=== PATIENT | female | born 1960 | race Caucasian/White ===

== ENCOUNTER → 2016-07-24 09:28 | Outpatient (CLI) | payer MEDICAID ==
[~2016-07-24 09:28] MED LIST: DELZICOL400 MG PO; FLAGYL 500500 MG/100 IV; FLAGYL500 MG PO; HYDROCODON-ACE1 EAC7 PO; HYDROCORTISONE30 G9 TOPICAL; LEVAQUIN500 MG PO; LEVAQUIN750 MG PO; MIRALAX17 GM PO; ONDANSETRON4 MG/2 M3 IV; PREDNISONE10 MG PO; PREDNISONE5 MG PO; ZOFRAN4 MG PO
--- NOTE | 2016-07-29 08:21 | EMG ---
PATIENT:LOLI TOLENTINO DATE OF SERVICE: 07/24/16 MEDICAL RECORD: [id number] DATE OF : 64 LOCATION: [facility] ADMISSION DATE: REFERRING PHYSICIAN: KI FELIX MD INTERPRETING PHYSICIAN: JANET URENA MD DATE OF SERVICE: 07/24/2016 Referred as an outpatient by Ki Felix MD. DATE OF EXAMINATION: 07/24/2016. ELECTROMYOGRAPHIC DATA: Electromyographic examination is limited to both upper extremities. In the right upper extremity, right median motor stimulation elicits a compound motor action potential with a distal latency of 3.2 milliseconds, peak amplitude of 11 millivolts and calculated conduction velocity of 53 meters per second. Right ulnar motor stimulation elicits a compound motor action potential with a distal latency of 3.0 milliseconds, peak amplitude of 6 millivolts, and calculated conduction velocity of 56 meters per second. Right ulnar motor stimulation across the elbow fails to elicit evidence of conduction block at this level. Antidromic right median sensory stimulation elicits a response with a distal latency of 3.6 milliseconds, amplitude of 17 microvolts and calculated conduction velocity of 49 meters per second. Antidromic right ulnar sensory stimulation elicits a response with a distal latency of 3.9 milliseconds, amplitude of 10 microvolts and calculated conduction velocity of 49 meters per second. The right median F wave has a latency of 29 milliseconds. In the left upper extremity, left median motor stimulation elicits a compound motor action potential with a distal latency of 3.1 milliseconds, peak amplitude of 13 millivolts, and calculated conduction velocity of 56 meters per second. Left ulnar motor stimulation elicits a compound motor action potential with a distal latency of 3.0 milliseconds, peak amplitude of 6 millivolts, and calculated conduction velocity of 55 meters per second. Left ulnar motor stimulation across the elbow fails to elicit evidence of conduction block at this level. Antidromic left median sensory stimulation elicits a response with a distal latency of 3.8 milliseconds, amplitude of 16 microvolts and calculated conduction velocity of 52 meters per second. Antidromic left ulnar sensory stimulation elicits a response with a distal latency of 3.7 milliseconds, amplitude of 19 microvolts and calculated conduction velocity of 51 meters per second. The left median F wave has a latency of 29 milliseconds. Needle electrode examination is not performed at this time at her request of the referring physician. INTERPRETATION: Electromyographic examination of both upper extremities, limited to the nerve conduction studies only, is normal. No further conclusions maybe drawn in the absence of needle electrode examination. TRANSINT:[id number] Voice Confirmation ID: [id number] DOCUMENT ID: [id number] ELECTROMYGRAM/NERVE CONDUCTION [id number] LOLI TOLENTINO DONALD P MD at 0821 CC: [id number] DICTATION DATE: 07/25/16813 BOARD CERTIFIED FAMILY PHYSICIAN: 07/25/16 1435 DEP CLI 07/24/16 [facility] [address] [place] [address]
== END | disposition home or self-care (01) ==
LOC: D.CN 07-21 09:00
DX: G56.93 Unspecified mononeuropathy of bilateral upper limbs (principal)

== ENCOUNTER 2016-09-09 11:50 | Emergency (ER) | payer MEDICAID ==
[2016-09-09 12:39] LABS: BASOPHILS 0.5 % (0-2); EOSINOPHILS 5.5 % (0-7); HEMATOCRIT 39.4 % (36.0-48.0); IMMATURE GRANULOCYTES 0.9 % (0-5); MCH 28.8 pg (26.0-34.0); MCV 87.4 fL (80.0-100.0); MEAN PLATELET VOLUME 9.9 fL (7.4-10.4); MONOCYTES 8.7 % (2-11); NEUTROPHILS 71.4 % (40-80); RBC 4.51 10x6/uL (4.00-5.40); WBC 10.7 10x3/uL (4.8-10.8)
[2016-09-09 12:42] LABS: PLATELET COUNT 498 10x3/uL (130-400)
[2016-09-09 12:55] LABS: ALBUMIN 3.8 g/dL (3.4-5.0); ANION GAP 13.5 mmol/L (8-16); BILIRUBIN - TOTAL 0.26 mg/dL (0.2-1.3); CALCIUM 9.3 mg/dL (8.5-10.1); CARBON DIOXIDE 26.9 mmol/L (21.0-32.0); CREATININE - SERUM 1.1 mg/dL (0.6-1.3); POTASSIUM - SERUM 4.4 mmol/L (3.5-5.1); PROTEIN - SERUM 7.7 g/dL (6.4-8.2)
[2016-09-09 14:30] LABS: APPEARANCE HAZY (CLEAR); BILIRUBIN NEGATIVE (NEGATIVE); COLOR DK YELLOW (YELLOW); GLUCOSE NEGATIVE (NEGATIVE); KETONE MODERATE mg/dL (NEGATIVE); LEUKOCYTE ESTERASE TRACE (NEGATIVE); NITRITE NEGATIVE (NEGATIVE); PROTEIN TRACE mg/dL (NEGATIVE); SPECIFIC GRAVITY 1.025 (1.005-1.020); UROBILINOGEN NORMAL (NORMAL)
[2016-09-09 14:31] LABS: BACTERIA FEW /hpf (NONE SEEN); CALCIUM OXALATE CRYSTALS RARE /hpf (NONE SEEN); EPITHELIAL CELLS 0-5 /hpf (0-5); HYALINE CAST 0-5 /lpf (NONE SEEN); MUCUS >1+ /lpf (NONE SEEN); RED CELLS - URINE 0-5 /hpf (0-5); WHITE CELLS - URINE 0-5 /hpf (0-5)
[2016-09-09 14:34] LABS: UDS - AMPHET POSITIVE QUAL (NEGATIVE); UDS - BARB NEGATIVE QUAL (NEGATIVE); UDS - BENZO NEGATIVE QUAL (NEGATIVE); UDS - COCAINE NEGATIVE QUAL (NEGATIVE); UDS - METH NEGATIVE QUAL (NEGATIVE); UDS - OPIATE NEGATIVE QUAL (NEGATIVE); UDS - PCP NEGATIVE QUAL (NEGATIVE); UDS - THC NEGATIVE QUAL (NEGATIVE)
== END 2016-09-09 16:09 | disposition home or self-care (01) ==
LOC: D.ER 11:50
PROVIDERS: Emergency Medicine; Nurse Practitioner Family
DX: R10.9 Unspecified abdominal pain (principal); K59.00 Constipation, unspecified

== ENCOUNTER 2016-10-23 11:51 | Emergency (ER) | payer MEDICAID ==
[2016-10-23 14:29] LABS: BASOPHILS 0.7 % (0-2); HEMATOCRIT 41.8 % (36.0-48.0); HEMOGLOBIN 13.6 g/dL (12-16); IMMATURE GRANULOCYTES 2.1 % (0-5); LYMPHOCYTES 20.7 % (15-50); MCHC 32.5 g/dL (31.0-37.0); MCV 86.2 fL (80.0-100.0); MEAN PLATELET VOLUME 9.7 fL (7.4-10.4); MONOCYTES 8.5 % (2-11); PLATELET COUNT 575 10x3/uL (130-400); RBC 4.85 10x6/uL (4.00-5.40); RDW 13.1 % (11.5-14.5); WBC 5.9 10x3/uL (4.8-10.8)
== END 2016-10-23 14:46 | disposition home or self-care (01) ==
LOC: D.ER 11:51
PROVIDERS: Nurse Practitioner Acute Care
DX: R05 Cough (principal); J01.90 Acute sinusitis, unspecified

== ENCOUNTER 2016-11-09 09:30 | Inpatient (IN) | payer MEDICAID ==
[~2016-11-09] VITALS: Ht 175.3 cm; Wt 64.5 kg
[2016-11-09 10:17] LABS: BASOPHILS 0.2 % (0-2); EOSINOPHILS 0.8 % (0-7); HEMATOCRIT 37.6 % (36.0-48.0); HEMOGLOBIN 12.5 g/dL (12-16); IMMATURE GRANULOCYTES 1.5 % (0-5); LYMPHOCYTES 13.9 % (15-50); MCH 27.8 pg (26.0-34.0); MCHC 33.2 g/dL (31.0-37.0); MCV 83.7 fL (80.0-100.0); MONOCYTES 12.2 % (2-11); NEUTROPHILS 71.4 % (40-80); RBC 4.49 10x6/uL (4.00-5.40); RDW 13.7 % (11.5-14.5); WBC 12.7 10x3/uL (4.8-10.8)
[2016-11-09 10:21] LABS: PLATELET COUNT 444 10x3/uL (130-400)
[2016-11-09 10:38] LABS: ALBUMIN 2.9 g/dL (3.4-5.0); ANION GAP 14.3 mmol/L (8-16); BILIRUBIN - TOTAL 0.43 mg/dL (0.2-1.3); CALCIUM 9.4 mg/dL (8.5-10.1); CARBON DIOXIDE 27.5 mmol/L (21.0-32.0); CREATININE - SERUM 0.9 mg/dL (0.6-1.3); POTASSIUM - SERUM 3.8 mmol/L (3.5-5.1); PROTEIN - SERUM 6.8 g/dL (6.4-8.2)
[2016-11-09 10:54] LABS: APPEARANCE CLEAR (CLEAR); BACTERIA MODERATE /hpf (NONE SEEN); BILIRUBIN NEGATIVE (NEGATIVE); COLOR DK YELLOW (YELLOW); EPITHELIAL CELLS 0-5 /hpf (0-5); GLUCOSE NEGATIVE (NEGATIVE); KETONE SMALL mg/dL (NEGATIVE); LEUKOCYTE ESTERASE TRACE (NEGATIVE); MUCUS >1+ /lpf (NONE SEEN); NITRITE NEGATIVE (NEGATIVE); PROTEIN NEGATIVE (NEGATIVE); RED CELLS - URINE 0-5 /hpf (0-5); UROBILINOGEN NORMAL (NORMAL); WHITE CELLS - URINE 0-5 /hpf (0-5)
[2016-11-09 13:42] LABS: PRO BNP 338 pg/mL (0-125)
[2016-11-09 13:50] LABS: TROPONIN-I < 0.017 ng/mL (0.000-0.060)
--- NOTE | 2016-11-09 16:31 | NUR ---
RECIVED FROM ER PER WC. TO ROOM 2127. WILL NOT ANSWER ANY QUESTIONS. STATES "I'M TALKING TO THE PRESIDENT, I CANT TALK TO YOU" ADMIT ASSESSMENT PER RN.
--- NOTE | 2016-11-09 16:35 | NUR ---
TRANSFER FROM ER BY W/C. JOELINTED TO ROOM. CALL LIGHT IN REACH. WILL CONT. PLAN OF CARE.
--- NOTE | 2016-11-09 17:41 | NUR ---
REFUSED HEART MONITOR. DR JHA NOTIFYED.
[2016-11-09 18:02] VITALS: BP 127/67; BMI 17.3
[2016-11-09 19:00] VITALS: BP 118/67
--- NOTE | 2016-11-09 19:20 | NUR ---
ASSESSMENT COMPLETE. S1S2. PT CONFUSED; RESTLESS. RR EQUAL UNLABORED; DIMINISHED BILATERALLY IN MID AND LOWER LOBES. 2L VIA NC. RADIAL AND PEDAL PULSES PALPATED. NO EDEMA NOTED. LFA PIV; PATENT.
--- NOTE | 2016-11-09 23:51 | NUR ---
PT RESTING; EYES CLOSED. NO DISTRESS NOTED. CALL LIGHT IN REACH. WILL CONTINUE TO MONITOR.
[2016-11-10] VITALS: BP 128/76
[2016-11-10 04:00] VITALS: BP 126/70
[2016-11-10 04:43] LABS: BASOPHILS 0.1 % (0-2); EOSINOPHILS 0.8 % (0-7); HEMATOCRIT 35.7 % (36.0-48.0); HEMOGLOBIN 11.9 g/dL (12-16); IMMATURE GRANULOCYTES 0.6 % (0-5); LYMPHOCYTES 11.1 % (15-50); MCH 27.7 pg (26.0-34.0); MCHC 33.3 g/dL (31.0-37.0); MEAN PLATELET VOLUME 9.9 fL (7.4-10.4); MONOCYTES 11.4 % (2-11); PLATELET COUNT 377 10x3/uL (130-400); RDW 13.9 % (11.5-14.5); WBC 11.3 10x3/uL (4.8-10.8)
[2016-11-10 05:03] LABS: ALBUMIN 2.3 g/dL (3.4-5.0); BILIRUBIN - TOTAL 0.35 mg/dL (0.2-1.3); CALCIUM 8.3 mg/dL (8.5-10.1); CARBON DIOXIDE 25.4 mmol/L (21.0-32.0); CREATININE - SERUM 0.9 mg/dL (0.6-1.3); POTASSIUM - SERUM 3.4 mmol/L (3.5-5.1); PROTEIN - SERUM 5.7 g/dL (6.4-8.2)
--- NOTE | 2016-11-10 05:36 | NUR ---
PT RESTING; EYES CLOSED. NO DISTRESS NOTED. CALL LIGHT IN REACH. DENIES ANY NEEDS AT THIS TIME.
--- NOTE | 2016-11-10 07:31 | NUR ---
AM ROUNDS - REPORT RECIEVED ON PT. RR EVEN AND UNLABORED, PT RESTING QUIETLY. BED IN LOWEST POSTION, CALL LIGHT IN REACH, WILL CTM.
[2016-11-10 08:23] VITALS: BP 120/70
--- NOTE | 2016-11-10 10:26 | NUR ---
PT IS COOPERATIVE AND RESPONSIVE TO COMMANDS. DISPLAYS NO SIGNS OF HALLUCINATIONS OR CONFUSION. WILL CTM.
[2016-11-10 12:40] VITALS: BP 125/79
[2016-11-10 16:15] VITALS: BP 121/69
[2016-11-10 19:00] VITALS: BP 144/80
--- NOTE | 2016-11-10 19:43 | NUR ---
RESUMED CARE OF PT, UP IN BATHROOM. LEFT FOREARM INFUSING NS @ 50. NO NEEDS NOTED AT THIS TIME, EMERGENCY LIGHT IN REACH. WILL CONTINUE TO MONITOR. SEE NURSE ASSESSMENT.
--- NOTE | 2016-11-10 22:22 | NUR ---
NIGHT MEDS GIVEN, URINE SAMPLE OBTAINED. NO NEEDS AT THIS TIME, CALL LIGHT IN REACH.
--- NOTE | 2016-11-10 23:47 | NUR ---
DR. JHA PAGED FOR ELEVATED TEMP, AWAITING CALL BACK.
[2016-11-11] VITALS: BP 128/68
[2016-11-11 04:00] VITALS: BP 113/50
[2016-11-11 05:37] LABS: BASOPHILS 0.4 % (0-2); EOSINOPHILS 1.1 % (0-7); HEMATOCRIT 34.6 % (36.0-48.0); HEMOGLOBIN 11.4 g/dL (12-16); LYMPHOCYTES 14.5 % (15-50); MCH 27.5 pg (26.0-34.0); MCHC 32.9 g/dL (31.0-37.0); MCV 83.4 fL (80.0-100.0); MEAN PLATELET VOLUME 10.5 fL (7.4-10.4); MONOCYTES 12.2 % (2-11); NEUTROPHILS 70.8 % (40-80); PLATELET COUNT 367 10x3/uL (130-400); RBC 4.15 10x6/uL (4.00-5.40); RDW 13.9 % (11.5-14.5)
[2016-11-11 05:42] LABS: WBC 8.1 10x3/uL (4.8-10.8)
[2016-11-11 06:04] LABS: % SATURATION 7 % (15-55); IRON 12 ug/dl (35-150); TOTAL IRON BIND CAPACITY 167 ug/dl (260-445); UNSAT IRON BIND CAPACITY 155 ug/dl (150-375)
[2016-11-11 06:10] LABS: ALBUMIN 2.1 g/dL (3.4-5.0); ALKALINE PHOSPHATASE 70 U/L (46-116); ALT (SGPT) 8 U/L (10-68); C-REACTIVE PROTEIN 9.9 mg/dL (0.0-0.9); CALC OSMOLALITY 278 mosm/kg (275-300); CALCIUM 8.1 mg/dL (8.5-10.1); CARBON DIOXIDE 26.5 mmol/L (21.0-32.0); CHLORIDE - SERUM 104 mmol/L (98-107); CREATINE KINASE 27 UL (21-215); CREATININE - SERUM 0.7 mg/dL (0.6-1.3); FERRITIN 151 ng/mL (3-244); GLUCOSE 132 mg/dL (74-106); PROTEIN - SERUM 5.5 g/dL (6.4-8.2); SODIUM 140 mmol/L (136-145); eGFR NON AFRICAN AMERICAN > 90 mL/min (90-120)
[2016-11-11 06:11] LABS: UREA NITROGEN 7 mg/dL (7-18)
--- NOTE | 2016-11-11 06:47 | NUR ---
NO CHANGES FROM PREVIOUS ASSESSMENT, CALL LIGHT IN REACH.
--- NOTE | 2016-11-11 07:28 | NUR ---
DR. JHA ON UNIT. INFORMED HIM OF PTS POTASSIUM LEVEL THIS AM (3.0). NO NEW ORDERS RECEIVED. WILL CONTINUE TO MONITOR.
--- NOTE | 2016-11-11 07:46 | NUR ---
AM ROUNDING- RECEIVED REPORT FROM YARD JACKER NURSE GARO. PT IS CURRENTLY LAYING IN BED ON BACK WITH EYES OPEN RESTING. ON 02 AT 3L VIA NC. NO MONITOR. IV SEEN TO LEFT FOREARM WITH NS RUNNING AT 50CC. ON EP, WILL CHECK AM LABS AND TX PER PROTOCOL. NO NEED AT CURRENT TIME. WILL CONTINUE TO MONITOR.
[2016-11-11 08:00] VITALS: BP 122/67
[2016-11-11 12:00] VITALS: BP 123/70
[2016-11-11 14:30] VITALS: Ht 175.3 cm; Wt 64.5 kg
[2016-11-11 16:00] VITALS: BP 119/55
--- NOTE | 2016-11-11 17:06 | NUR ---
PT IS CURRENTLY LAYING IN BED ON BACK WITH EYES OPEN RESTING. DINNER TRAY JUST GOT TO ROOM. PT DENIES ANY NEED AT CURRENT TIME. CALL LIGHT IS IN REACH. WILL CONTINUE TO MONITOR.
--- NOTE | 2016-11-11 18:55 | NUR ---
CALLED INTO PTS ROOM FOR PTS IV BEING "INFILTRATED". IV SITE IS RED, TENDER TO TOUCH. REMOVED IV TO LEFT FOREARM WITH CATH TIP INTACT. COVERED SITE WITH 2X2 GAUZE PADS AND SECURED WITH TAPE. ATTEMPTED TO RE-STIE PT X2 STICK THAT WAS NOT SUCCESSFUL. KARINA NUNEZ RN ATTEMPTED TO RESITE PT X2 STICK THAT WAS NOT SUCCESSFUL. WILL PASS THIS ALONG IN REPORT.
[2016-11-11 19:00] VITALS: BP 107/58
--- NOTE | 2016-11-11 19:30 | NUR ---
ASSESSMENT COMPLETE. S1S2. RR SHALLOW; CRACKLES BILATERALLY IN UPPER LOBES; DIMINISHED BILATERALLY IN MID AND LOWER LOBES. NO IV PRESENT. AAO. DENIES PAIN. ROOM AIR. CALL LIGHT IN REACH. WILL CONTINUE TO MONITOR.
--- NOTE | 2016-11-11 20:34 | NUR ---
MEDS TAKEN WITHOUT DIFFICULTY. DENIES ANY NEEDS AT THIS TIME. CALL LIGHT IN REACH.
--- NOTE | 2016-11-11 23:19 | NUR ---
22 GAUGE PIV STARTED TO RIGHT HAND. PT CONNECTED TO IV PUMP WITH NS @ 50. NO SIGNS OF INFLITRATION; NO COMPLAINTS OF PAIN. WILL CONTINUE TO MONITOR. LINE PATENT.
--- NOTE | 2016-11-11 23:51 | NUR ---
COMPLETE LINEN CHANGE.
[2016-11-12] VITALS: BP 115/59
[2016-11-12 04:34] VITALS: BP 125/70
[2016-11-12 05:15] LABS: BASOPHILS 0.3 % (0-2); EOSINOPHILS 2.6 % (0-7); HEMATOCRIT 34.4 % (36.0-48.0); HEMOGLOBIN 11.3 g/dL (12-16); IMMATURE GRANULOCYTES 0.6 % (0-5); LYMPHOCYTES 11.2 % (15-50); MCH 27.6 pg (26.0-34.0); MCHC 32.8 g/dL (31.0-37.0); MCV 83.9 fL (80.0-100.0); MEAN PLATELET VOLUME 10.2 fL (7.4-10.4); MONOCYTES 10.7 % (2-11); NEUTROPHILS 74.6 % (40-80); PLATELET COUNT 408 10x3/uL (130-400); RDW 13.8 % (11.5-14.5); WBC 8.9 10x3/uL (4.8-10.8)
--- NOTE | 2016-11-12 05:29 | NUR ---
MEDICATIONS ADMINISTERED WITHOUT DIFFICULTY. DENIES ANY NEEDS AT THIS TIME. NO DISTRESS NOTED. WILL CONTINUE TO MONITOR.
[2016-11-12 05:47] LABS: ALBUMIN 2.1 g/dL (3.4-5.0); ALKALINE PHOSPHATASE 73 U/L (46-116); CALC OSMOLALITY 269 mosm/kg (275-300); CALCIUM 8.1 mg/dL (8.5-10.1); CARBON DIOXIDE 26.8 mmol/L (21.0-32.0); CHLORIDE - SERUM 102 mmol/L (98-107); CREATININE - SERUM 0.6 mg/dL (0.6-1.3); GLUCOSE 99 mg/dL (74-106); PROTEIN - SERUM 5.6 g/dL (6.4-8.2); SODIUM 136 mmol/L (136-145); UREA NITROGEN 8 mg/dL (7-18); eGFR NON AFRICAN AMERICAN > 90 mL/min (90-120)
[2016-11-12 05:52] LABS: ALT (SGPT) 11 U/L (10-68)
[2016-11-12 07:22] LABS: IMMUNOGLOBULIN E 7 IU/mL (0-100)
--- NOTE | 2016-11-12 07:45 | NUR ---
0715- AM ROUNDING- PT IS CURRENTLY LAYING IN BED ON BACK WITH EYES OPEN RESTING CURRENTLY RECEIVING A BREATHING TX. ON AT 3L VIA NC. NO MONITOR. IV SEEN TO RIGHT HAND WITH NS RUNNING AT 50CC. NO NEED AT CURRENT TIME. WILL CONTINUE TO MONITOR AND CONTINUE WITH PLAN OF CARE.
[2016-11-12 08:19] VITALS: BP 118/60
[2016-11-12 10:15] LABS: ANA REFLEX - DIRECT Negative (Negative)
--- NOTE | 2016-11-12 11:55 | NUR ---
CHEMA, POWER LINEMAN CAME TO INFORM ME TO PLACE PT IN DROPLET ISOLATION FOR PRECAUTION FOR MRSA IN SPUTUM PER IGNACIA IN LAB. WILL DO ORDERED.
[2016-11-12 12:06] VITALS: BP 103/61
[2016-11-12 15:47] VITALS: BP 130/82
--- NOTE | 2016-11-12 17:41 | NUR ---
Patient Name: LOLI TOLENTINO Admission Status: ER Accout number: [id number] Admission Date: 11-09-2016 : 1960 Admission Diagnosis:COUGH Attending: ERICA Current LOS: 3 Anticipated DC Date: Planned Disposition: Home Primary Insurance: [place]ID [place] Discharge Planning Comments: * Is the patient Alert and Oriented? Yes 0 * How many steps to enter\exit or inside your home? 4 0 * PCP JOAN WHITLEY 0 * Pharmacy [facility] [address] * Preadmission Environment Home Alone 0 * ADLs Independent 0 * Equipment Cane 0 * Other Equipment NO MEDICAL EQUIPMENT PROVIDER PREFERENCE 0 * List name and contact numbers for known caregivers / representatives who currently or will assist patient after discharge: JITENDRA NOLAN, DAUGHTER, YORDAN GONZALES, BROTHER IN LAW, 0 * Community resources currently utilized None 0 * Please name any agencies selected above. NONE 0 * Additional services required to return to the preadmission environment? No 0 * Can the patient safely return to the preadmission environment? Yes 0 * Has this patient been hospitalized within the prior 30 days at any hospital? No 0 CM MET WITH PT IN ROOM TO DISCUSS DISCHARGE PLANNING AND NEEDS. PT REPORTS LIVING AT HOME INDEPENDENTLY AND ALONE. PT HAS A CANE WITH NO MEDICAL EQUIPMENT PROVIDER PREFERENCE AND NO OUTSIDE SERVICES ASSISTING IN THE HOME. CM DISCUSSED AVAILABILITY OF HOME HEALTH, REHAB SERVICES AND MEDICAL EQUIPMENT. PT DENIES DISCHARGE NEEDS, REPORTS HER FAMILY WILL PICK HER UP FOR DISCHARGE HOME. PT PLANS TO DISCHARGE HOME ALONE, DENIES DISCHARGE NEEDS AT THIS TIME. CM TO FOLLOW AND ASSIST NEEDED. It Security Engineer: Arnoldo Fagan
--- NOTE | 2016-11-12 19:28 | NUR ---
ASSESSMENT COMPLETE, A&O. IN BED RESTING, RESPERTIONS EVEN ON AT 3 LITER VIA NC. IV TO RIGHT HAND WITH NS INFUSING AT 50 CC/HR. SITE CLEAN AND DRY. PT DEIES PAIN OR NEEDS, BED LOW, CL IN REACH. WILL CONT TO MONITOR.
[2016-11-12 21:00] VITALS: BP 121/55
--- NOTE | 2016-11-12 21:51 | NUR ---
HS MEDS GIVEN WITH FRESH ICE WATER. NS DECREAED TO KVO RATE OF 10CC/HR. PT DENIES PAIN OR NEEDS, BED LOW, CL IN REACH.
[2016-11-13 00:32] VITALS: BP 111/52
--- NOTE | 2016-11-13 01:38 | NUR ---
RESTING WITH EYES CLOSED, RESPERATIONS EVEN, NO S/S DISTRESS NOTED.
[2016-11-13 04:05] VITALS: BP 112/62
[2016-11-13 05:20] LABS: BASOPHILS 0.2 % (0-2); EOSINOPHILS 2.5 % (0-7); HEMATOCRIT 35.3 % (36.0-48.0); HEMOGLOBIN 11.6 g/dL (12-16); IMMATURE GRANULOCYTES 0.6 % (0-5); LYMPHOCYTES 10.2 % (15-50); MCH 27.6 pg (26.0-34.0); MCHC 32.9 g/dL (31.0-37.0); MCV 83.8 fL (80.0-100.0); MEAN PLATELET VOLUME 10.4 fL (7.4-10.4); MONOCYTES 11.1 % (2-11); NEUTROPHILS 75.4 % (40-80); PLATELET COUNT 472 10x3/uL (130-400); RBC 4.21 10x6/uL (4.00-5.40); RDW 13.7 % (11.5-14.5); WBC 10.4 10x3/uL (4.8-10.8)
[2016-11-13 05:40] LABS: ALBUMIN 2.1 g/dL (3.4-5.0); ALKALINE PHOSPHATASE 81 U/L (46-116); ALT (SGPT) 9 U/L (10-68); BILIRUBIN - TOTAL 0.48 mg/dL (0.2-1.3); CALC OSMOLALITY 266 mosm/kg (275-300); CALCIUM 8.6 mg/dL (8.5-10.1); CHLORIDE - SERUM 100 mmol/L (98-107); CREATININE - SERUM 0.7 mg/dL (0.6-1.3); GLUCOSE 96 mg/dL (74-106); SODIUM 134 mmol/L (136-145); UREA NITROGEN 10 mg/dL (7-18); eGFR NON AFRICAN AMERICAN > 90 mL/min (90-120)
--- NOTE | 2016-11-13 07:28 | NUR ---
AM ROUNDING- RECEIVED REPORT FROM ELECTRIC RAZOR MECHANIC NURSE HONEY. PT IS CURRENTLY LAYING IN BED ON BACK WITH EYES OPEN RESTING. C/O DISCOMFORT FROM IV. THIS NURSE CHECKED IV, NO REDNESS OR SWELLING SEEN. TURNED IV ANTIBIOTICS DOWN AND PT STATES "IT FEELS BETTER". IN DROPLET ISOLATION FOR MRSA IN SPUTUM. ON 02 AT 3L VIA NC. NO MONITOR. IV SEEN TO RIGHT HAND WITH NS RUNNING AT KVO (10CC). NO NEED AT CURRENT TIME. WILL CONTINUE TO MONITOR AND CONTINUE WITH PLAN OF CARE.
[2016-11-13 08:18] VITALS: BP 106/59
[2016-11-13 11:44] VITALS: BP 108/65
--- NOTE | 2016-11-13 13:12 | NUR ---
Nurtrition follow-up: Diet: regular po intake ~60% average of last 9 meals +BM Wt: 146# RDN following.
[2016-11-13 15:19] LABS: ANCA - ANTIMYELOPEROXIDASE <9.0 U/mL (0.0-9.0); ANCA - ANTIPROTEINASE 3 <3.5 U/mL (0.0-3.5); ANCA - ATYPICAL <1:20 titer (Neg:<1:20); ANCA - CYTOPLASMIC <1:20 titer (Neg:<1:20); ANCA - PERINUCLEAR <1:20 titer (Neg:<1:20)
[2016-11-13 15:28] VITALS: BP 104/52
--- NOTE | 2016-11-13 18:29 | NUR ---
PT IS CURRENTLY SITTING UP IN BED WITH EYES OPEN RESTING. DENIES ANY NEED AT CURRENT TIME. CALL LIGHT IS IN REACH. WILL CONTINUE TO MONITOR.
[2016-11-13 19:00] VITALS: BP 109/60
[2016-11-13 20:08] LABS: MYCOPLASMA PNEUMO IGG <100 U/mL (0-99)
--- NOTE | 2016-11-13 21:04 | NUR ---
HS MEDS GIVEN, PT DENIES PAIN OR NEEDS, BED LOW, CL IN REACH.
[2016-11-13 21:07] LABS: CYCLIC CITRULL PEPTIDE IGG/IGA 1 units (0-19)
[2016-11-14] VITALS: BP 112/55
--- NOTE | 2016-11-14 01:42 | NUR ---
RESTING WITH EYES CLOSED, RESPERAITONS EVEN, NO S/S DISTRESS NOTED.
[2016-11-14 04:00] VITALS: BP 112/67
[2016-11-14 06:44] LABS: BASOPHILS 0.4 % (0-2); HEMATOCRIT 34.7 % (36.0-48.0); HEMOGLOBIN 11.4 g/dL (12-16); IMMATURE GRANULOCYTES 0.9 % (0-5); LYMPHOCYTES 11.4 % (15-50); MCH 27.5 pg (26.0-34.0); MCHC 32.9 g/dL (31.0-37.0); MCV 83.6 fL (80.0-100.0); MEAN PLATELET VOLUME 10.1 fL (7.4-10.4); MONOCYTES 9.9 % (2-11); NEUTROPHILS 72.4 % (40-80); PLATELET COUNT 448 10x3/uL (130-400); RBC 4.15 10x6/uL (4.00-5.40); RDW 13.6 % (11.5-14.5); WBC 7.8 10x3/uL (4.8-10.8)
[2016-11-14 07:16] LABS: ALBUMIN 2.1 g/dL (3.4-5.0); ALKALINE PHOSPHATASE 80 U/L (46-116); ALT (SGPT) 11 U/L (10-68); CALC OSMOLALITY 270 mosm/kg (275-300); CALCIUM 8.8 mg/dL (8.5-10.1); CARBON DIOXIDE 27.5 mmol/L (21.0-32.0); CHLORIDE - SERUM 101 mmol/L (98-107); CREATININE - SERUM 0.6 mg/dL (0.6-1.3); GLUCOSE 91 mg/dL (74-106); POTASSIUM - SERUM 3.9 mmol/L (3.5-5.1); PROTEIN - SERUM 6.1 g/dL (6.4-8.2); SODIUM 136 mmol/L (136-145); UREA NITROGEN 9 mg/dL (7-18); eGFR NON AFRICAN AMERICAN > 90 mL/min (90-120)
--- NOTE | 2016-11-14 08:03 | NUR ---
ASSESSMENT DONE. DENIES NEEDS.
--- NOTE | 2016-11-14 08:07 | NUR ---
RESTS IN ISOLATION ROOM. CALL LIGHT IN REACH. WILL MONITOR NEEDS.
[2016-11-14 08:31] VITALS: BP 116/57
[2016-11-14 12:33] VITALS: BP 111/58
[2016-11-14 16:30] VITALS: BP 110/58
--- NOTE | 2016-11-14 16:48 | NUR ---
WITHOUT CHANGES OR DISTRESS NOTED AT THIS TIME. TERESITA NEEDS.
[2016-11-14 20:00] VITALS: BP 113/66
--- NOTE | 2016-11-14 21:30 | NUR ---
HS MEDS GIVEN WITH FRESH ICE WATER. PT DENIES PAIN OR NEEDS, BED LOW, CL IN REACH.
--- NOTE | 2016-11-14 21:52 | NUR ---
ANSWERED CL, WARM BLANKET GIVEN AT PT REQUEST.
--- NOTE | 2016-11-15 03:31 | NUR ---
RESTING WITH EYES CLOSED, RESPERATIONS EVEN, NO S/S DISTRESS NOTED.
[2016-11-15 04:00] VITALS: BP 106/64
[2016-11-15 06:09] LABS: BASOPHILS 0.6 % (0-2); HEMATOCRIT 33.3 % (36.0-48.0); HEMOGLOBIN 10.8 g/dL (12-16); IMMATURE GRANULOCYTES 0.8 % (0-5); LYMPHOCYTES 11.1 % (15-50); MCH 27.2 pg (26.0-34.0); MCHC 32.4 g/dL (31.0-37.0); MCV 83.9 fL (80.0-100.0); MEAN PLATELET VOLUME 10.2 fL (7.4-10.4); MONOCYTES 9.5 % (2-11); PLATELET COUNT 485 10x3/uL (130-400); RBC 3.97 10x6/uL (4.00-5.40); RDW 13.5 % (11.5-14.5); WBC 8.4 10x3/uL (4.8-10.8)
[2016-11-15 06:32] LABS: ALKALINE PHOSPHATASE 79 U/L (46-116); ALT (SGPT) 15 U/L (10-68); BILIRUBIN - TOTAL 0.26 mg/dL (0.2-1.3); CALC OSMOLALITY 270 mosm/kg (275-300); CALCIUM 8.9 mg/dL (8.5-10.1); CARBON DIOXIDE 26.4 mmol/L (21.0-32.0); CHLORIDE - SERUM 100 mmol/L (98-107); CREATININE - SERUM 0.6 mg/dL (0.6-1.3); GLUCOSE 97 mg/dL (74-106); POTASSIUM - SERUM 4.2 mmol/L (3.5-5.1); PROTEIN - SERUM 5.9 g/dL (6.4-8.2); SODIUM 136 mmol/L (136-145); UREA NITROGEN 10 mg/dL (7-18); eGFR NON AFRICAN AMERICAN > 90 mL/min (90-120)
--- NOTE | 2016-11-15 07:27 | NUR ---
AM ROUNDS - PT RESTING QUIELROBINA, RR EVEN AND UNLABORED. PT DENIES NEEDS AT THIS TIME. INTRODUCED SELF PRIMARY RN FOR DAY AND PLACE NAME ON WHITE BOARD. BED IN LOWEST POSTION, CALL YATES IN REACH, WILL CTM.
[2016-11-15 08:00] VITALS: BP 93/53
[2016-11-15 11:31] VITALS: BP 101/60
[2016-11-15 15:12] VITALS: BP 107/57
--- NOTE | 2016-11-15 18:38 | NUR ---
PT RESTING QUIETLY, REPORTS PAIN AT 5/10, TYLENOL GIVEN. DENIES OTHER NEEDS AT THIS TIME. RR EVEN AND UNLABORED, FALL PRECAUTIONS IN PLACE, WILL GIVE REPORT ON PT CONDITION FOR THE DAY.
--- NOTE | 2016-11-15 20:00 | NUR ---
INITIAL ROUNDS COMPLETED AT 1914 HRS. PT DENIED ANY DISCOMFORT. ASSESSMENT COMPELTED AT 1954 HRS. O2 2LNC. IV TO L WRIST WITH NS AT 15CC/HR. IV PATENT. LUNGS WITH SCATTERED RHONCHI IN MID TO LOWER LOBES BILAT. ALERT AND ORIENTED. WILL CONTINUE TO MONITOR. SR UP X2, CALL LIGHT WITHIN REACH.
[2016-11-15 22:00] VITALS: BP 94/55
--- NOTE | 2016-11-15 23:52 | NUR ---
PT RESTING WITH EYES CLOSED. RESP EVEN AND REGULAR. SR UP X2, CALL LIGHT WITHIN REACH.
[2016-11-16] VITALS: BP 105/61
--- NOTE | 2016-11-16 02:29 | NUR ---
PT RESTING WITH EYES CLOSED. RESP EVEN AND REGULAR. SR UP X2, CALL LIGHT WITHIN REACH.
--- NOTE | 2016-11-16 04:52 | NUR ---
PT AWAKE;DENIES ANY DISCOMFORT. WILL CONTINUE TO MONITOR.
[2016-11-16 05:03] VITALS: BP 124/75
--- NOTE | 2016-11-16 06:22 | NUR ---
VSS THROUGHOUT NIGHT. PT DENIED ANY DISCOMFORT. NEEDS MET; WILL CONTINUE TO MONITOR.
[2016-11-16 08:00] VITALS: BP 103/60
[2016-11-16 08:16] LABS: A. FUMIGATUS #1 ABS Negative (Negative); PNEUM - A PULLULANS ABS Negative (Negative); PNEUM - MICROPOLY FAENI ABS Negative (Negative); PNEUM - PIGEON SERUM ABS Negative (Negative); PNEUM - THERMOA VULGARIS #1 Negative (Negative); PNEUM - THERMOACT SACCHARII Negative (Negative)
[2016-11-16 12:00] VITALS: BP 99/63
--- NOTE | 2016-11-16 15:16 | NUR ---
Patient Name: LOLI TOLENTINO Encounter No: [id number] : 1960 Primary Insurance: MEDICAID [facility] DC Date: 11-17-2016 Planned Disposition: Home DCP follow-up note: CM RECEIVED ORDER FOR DISCHARGE PLANNING, PT REPORTS PLAN TO RETURN HOME ALONE, FAMILY TO RELIEF WORKER. CM DISCUSSED AVAILABILITY OF HOME HEALTH, REHAB SERVICES AND MEDICAL EQUIPMENT. PT REPORTS SHE WAS FEELING A LITTLE WEAK IN THE SHOWER THIS MORNING, STATES SHE IS UNSURE BUT MIGHT NEED HOME HEALTH FOR CONTINUED THERAPY AT HOME. PT DENIES FURTHER NEEDS AT THIS TIME. CM REVIEWED CHART, THERE HAS BEEN NO THERAPY EVALUATION. CM SPOKE TO NURSE WHO REPORTS PT IS UP AD EBONY. CM REQEUSTED AND RECEIVED ORDER FOR PHYSICAL THERAPY EVALUATION TO BETTER EVALUATE PT'S POSSIBLE HOME NEED FOR THERAPY, IF ANY. CM NOTIFIED PT. CM WILL SPEAK TO PT REGARDING HOME HEALTH IF PT IS DETERMINED TO HAVE A SKILLED NEED, IF PHYSICIAN AGREES/PROVIDES ORDER AND WITH PT CHOICE. LAUREN GOMEZ, CASE MANAGEMENT
[2016-11-16 16:00] VITALS: BP 97/67
--- NOTE | 2016-11-16 17:13 | NUR ---
ALERT AND ORIENTED X4. SITTING UP IN BED. LT TIBIAL PULSE FAINT. DOPPLER USED TO VERIFY. TIBIAL PULSE MARKED. IR DOCTOR AND WORKING ON PLAN OF CARE. WAITING FOR INR TO DECREASE TO THERAPEUTIC RANGE. DENIES ANY NEEDS. CONTINUE PLAN OF CARE. BED LOCKED AND LOW. CALL LIGHT IN REACH. TWO SIDERAILS UP. SINUS TACH 112bpm ON TELEMETRY.
--- NOTE | 2016-11-16 17:23 | NUR ---
ALERT AND ORIENTED X4. RESTING IN BED. PHYSICAL THERAPY CONSULT ORDERED PER . DENIES ANY NEEDS AT THIS TIME. CONTINUE PLAN OF CARE. BED LOCKED AND LOW. CALL LIGHT IN REACH. TWO SIDERAILS UP.
--- NOTE | 2016-11-16 19:00 | NUR ---
REPORT RECEIVED. LAYING IN BED. SHIFT ASSESSMENT COMPLETE PER FLOW SHEET. AWAKE AND ALERT TO PERSON, TIME, AND PLACE. PUPILS EQUAL AND REACTIVE TO LIGHT AND ACCOMODATION. 2 L O2 VIA NC. TEACHING PROVIDED ON IMPORTANCE OF COUGH/DEEP BREATHING. ENCOURAGED USE OF INCENTIVE SPIROMETER BEST EFFORT AT 1000 MLS. SKIN WARM AND DRY. RADIAL PULSES PALP EQUAL BILAT. POPLITEAL PULSES PALP EQUAL BILAT. BS ACTIVE X4. FULL ROM IN UPPER AND LOWER EXTREMITIES. REFUSED SCDs. SEE FLOW SHEET FOR COMPLETE ASSESSMENT. WILL CONTINUE TO MONITOR.
--- NOTE | 2016-11-16 20:42 | NUR ---
LAYING IN BED AWAKE. MEDS ADMINISTERED PER EMAR. DENIES FURTHER NEEDS AT THIS TIME. BED IN LOWEST POSITION. CALL LIGHT WITHIN REACH.
--- NOTE | 2016-11-16 22:33 | NUR ---
LAYING IN BED RESTING. SALINE FLUSH PER EMAR. DENIES FURTHER NEEDS AT THIS TIME. BED IN LOWEST POSITION. CALL LIGHT WITHIN REACH. WILL CONTINUE TO MONITOR.
[2016-11-16 23:00] VITALS: BP 113/69
--- NOTE | 2016-11-16 23:00 | NUR ---
SLEEPING IN BED. DENIES NEEDS AT THIS TIME. BED IN LOWEST POSITION. CALL LIGHT WITHIN REACH.
--- NOTE | 2016-11-17 01:00 | NUR ---
SLEEPING IN BED. DENIES NEEDS AT THIS TIME. CALL LIGHT WITHIN REACH. BED IN LOWEST POSITION. WILL CONTINUE TO MONITOR.
[2016-11-17 01:51] VITALS: BP 105/61
--- NOTE | 2016-11-17 03:00 | NUR ---
LAYING IN BED SLEEPING. NO CHANGES NOTED. DENIES NEEDS AT THIS TIME. CALL LIGHT WITHIN REACH. BED IN LOWEST POSITION. WILL CONTINUE TO MONITOR.
[2016-11-17 04:56] LABS: BASOPHILS 0.5 % (0-2); EOSINOPHILS 6.8 % (0-7); HEMATOCRIT 34.7 % (36.0-48.0); HEMOGLOBIN 11.4 g/dL (12-16); IMMATURE GRANULOCYTES 0.7 % (0-5); LYMPHOCYTES 7.9 % (15-50); MCH 27.3 pg (26.0-34.0); MCHC 32.9 g/dL (31.0-37.0); MCV 83.2 fL (80.0-100.0); MEAN PLATELET VOLUME 9.7 fL (7.4-10.4); MONOCYTES 6.9 % (2-11); NEUTROPHILS 77.2 % (40-80); RBC 4.17 10x6/uL (4.00-5.40); RDW 13.5 % (11.5-14.5); WBC 10.2 10x3/uL (4.8-10.8)
--- NOTE | 2016-11-17 05:00 | NUR ---
IN BATHROOM USING TOILET. DENIES NEEDS AT THIS TIME. WILL CONTINUE TO MONITOR.
[2016-11-17 05:02] LABS: PLATELET COUNT 618 10x3/uL (130-400)
[2016-11-17 05:20] LABS: ALBUMIN 2.1 g/dL (3.4-5.0); ALKALINE PHOSPHATASE 82 U/L (46-116); ALT (SGPT) 18 U/L (10-68); CALC OSMOLALITY 270 mosm/kg (275-300); CALCIUM 8.8 mg/dL (8.5-10.1); CARBON DIOXIDE 27.6 mmol/L (21.0-32.0); CHLORIDE - SERUM 101 mmol/L (98-107); CREATININE - SERUM 0.7 mg/dL (0.6-1.3); GLUCOSE 94 mg/dL (74-106); POTASSIUM - SERUM 4.2 mmol/L (3.5-5.1); PROTEIN - SERUM 6.2 g/dL (6.4-8.2); SODIUM 136 mmol/L (136-145); UREA NITROGEN 11 mg/dL (7-18); eGFR NON AFRICAN AMERICAN > 90 mL/min (90-120)
[2016-11-17 05:36] VITALS: BP 111/71
--- NOTE | 2016-11-17 06:05 | NUR ---
AWAKE LAYING IN BED. MEDS ADMINISTERED PER EMAR. DENIES FURTHER NEEDS AT THIS TIME. CALL LIGHT WITHIN REACH. BED IN LOWEST POSITION.
[2016-11-17 08:00] VITALS: BP 94/58
[2016-11-17 11:55] VITALS: BP 103/61
[2016-11-17 16:00] VITALS: BP 102/66
--- NOTE | 2016-11-17 16:35 | NUR ---
Patient Name: LOLI TOLENTINO Encounter No: [id number] : 1960 Primary Insurance: MEDICAID [place] Anticipated DC Date: 11-17-2016 Planned Disposition: Home DCP follow-up note: CM RECEIVED ORDER FOR HOME / PORTABLE OXYGEN AND NEBULIZER FOR DISCHARGE HOME, PLANNED DISCHARGE THIS EVENING. CM SPOKE TO PT IN ROOM WHO HAS NO PREFERENCE ON PROVIDER FOR MEDICAL EQUIPMENT. CM DISCUSSED HOME HEALTH AND REHAB. PT DENIES NEEDS OF BOTH. PT REPORTS HAVING TRANSPORTATION IF DISCHARGED HOME THIS EVENING. PT'S DISCHARGE ADDRESS IS [address] [place] [address], [facility] [address], [place]. [address]; CELL [phone]. CM NOTIFIED PT, BEDSIDE NURSE AND DR. REGALADO OF NEED FOR AGB TESTING FOR OXYGEN QUALIFICATION. CM FAXED ORDER AND SUPPORTING CLINICAL DOCUMENTS FOR [facility]ULIZ[facility] , CALLED AND SPOKE TO YENIFER WHO REPORTS PT NEEDS AN ABG SHE HAS MEDICAID. VERONICA TO PROCESS ORDER ONCE RECEIVE QUALIFYING ABG TESTING. CM TO FAX OXYGEN QUALIFICATION TESTING (ABG) TO [facility] AT [phone]. Arnoldo Fagan, CASE MANAGEMENT
--- NOTE | 2016-11-17 16:49 | NUR ---
RESPIRATORY AT BEDSIDE INITIATING WALK TEST. ROOM AIR SAT 80% ABGs DRAW FOR HOME OXYGEN REQUIREMENTS. PO2 LEVEL 44.2. RESULTS GIVEN TO CASE MANAGEMENT. ALERT AND ORIENTED X4. OXYGEN VIA NC 2L PLACED BACK ON. CONTINUE TO MONITOR. DENIES ANY NEEDS. BED LOCKED AND LOW. CALL LIGHT IN REACH. TWO SIDERAILS UP.
--- NOTE | 2016-11-17 18:14 | NUR ---
PAGED TO INFORM PORTABLE OXYGEN DELIVERED AND REQUIREMENTS MET FOR DISCHARGE. WAITING FOR CALL BACK.
--- NOTE | 2016-11-17 19:45 | NUR ---
PT RESTING IN BED WITH NO DISTRESS. O2 @2L/NC. SALINE LOCK TO RIGHT WRIST. SEE ASSESSMENT, MONITOR AND CPOC.
[2016-11-17 21:01] VITALS: BP 97/64
[2016-11-18 01:04] VITALS: BP 95/59
[2016-11-18 04:18] VITALS: BP 100/61
[2016-11-18] MEDS ORDERED: VIBRAMYCIN 100100 MG PO (07:41)
[2016-11-18] MEDS ORDERED: IPRAT-ALBUT 0.5-3 ML INH (07:42)
[2016-11-18] MEDS ORDERED: BROVANA15 MCG/2 M INH (07:42)
[2016-11-18] MEDS ORDERED: ALBUTEROL2.5 MG/3 M INH (07:42)
[2016-11-18] MEDS ORDERED: FERROUS SULFAT325 MG PO (07:43)
[2016-11-18] MEDS ORDERED: PROTONIX40 MG PO (07:43)
[2016-11-18] MEDS ORDERED: ABILIFY2 MG PO (07:43)
[2016-11-18 08:00] VITALS: BP 95/59
--- NOTE | 2016-11-18 08:54 | NUR ---
Patient Name: LOLI TOLENTINO Encounter No: [id number] : 1960 Primary Insurance: MEDICAID [facility] DC Date: 11-18-2016 Planned Disposition: Home DCP follow-up note: CM SPOKE TO PT IN ROOM WHO REPORTS THAT PORTABLE OXYGEN WAS DELIVERED LAST NIGHT TO THE ROOM, SHE HAD TRANSPORTATION ARRANGED AND SHE WAS READY TO GO HOME AND ONCE HOME, CALL [facility] WHO WILL DELIVER HOME OXYGEN AND NEBULIZER. PT REPORTS SHE DOES NOT KNOW WHY SHE DIDN'T GO HOME LAST NIGHT AND GUESSES THAT THEY JUST WERE NOT READY FOR HER TO GO. PT IN AGREEMENT WITH DISCHARGE HOME, HAS PHONE NUMBER TO CALL [facility] WHEN HOME TO COMPLETE MEDICAL EQUIPMENT DELIVERY HOME. PT HAS PORTABLE OXYGEN HERE NOW FOR DISCHARGE HOME, DENIES DISCHARGE NEEDS AT THIS TIME. CM NOTIFIED CARDROOM ATTENDANT JUDY. Arnoldo Fagan, CASE MANAGEMENT
--- NOTE | 2016-11-18 10:47 | NUR ---
ALERT AND ORIENTED X4. SITTING UP IN BED. DC LT WRIST IV TIP INTACT. DISCHARGE INSTRUCTIONS GIVEN VERBALLY AND WRITTEN. DISCHARGE PAPERS SIGNED ON CHART. PORTABLE OXYGEN IN ROOM. [facility] CALLED FOR TRANSPORT. ESCORT TO [facility] VIA WHEELCHAIR. REMAINS FREE FROM INJURY.
== END 2016-11-18 10:51 | disposition home or self-care (01) | DRG 190 ==
LOC: D.ER 09:30 → D.SDCHOLD 15:26 → OBSVTIME 15:27 → D.M2 16:03
PROVIDERS: Family Medicine; Internal Medicine Pulmonary Disease; ADMIT Family Medicine
DX: J44.0 Chronic obstructive pulmonary disease with (acute) lower respiratory infection (principal); J15.211 Pneumonia due to Methicillin susceptible Staphylococcus aureus; J98.11 Atelectasis; F05 Delirium due to known physiological condition; J84.9 Interstitial pulmonary disease, unspecified; E87.6 Hypokalemia; E88.09 Other disorders of plasma-protein metabolism, not elsewhere classified; F20.9 Schizophrenia, unspecified; D64.9 Anemia, unspecified; Z86.73 Personal history of transient ischemic attack (TIA), and cerebral infarction without residual deficits; Z87.891 Personal history of nicotine dependence

== ENCOUNTER → 2017-04-14 09:27 | Outpatient (CLI) | payer MEDICAID ==
[2016-11-11 14:30] VITALS: BMI 18.7
[~2017-04-14 09:27] MED LIST changes: +ABILIFY2 MG PO; +ALBUTEROL2.5 MG/3 M INH; +BROVANA15 MCG/2 M INH; +FERROUS SULFAT325 MG PO; +IPRAT-ALBUT 0.5-3 ML INH; +PROTONIX40 MG PO; +VIBRAMYCIN 100100 MG PO
== END | disposition home or self-care (01) ==
LOC: D.RT 09:27
DX: J44.9 Chronic obstructive pulmonary disease, unspecified (principal)

== ENCOUNTER → 2017-06-11 12:40 | Outpatient (CLI) | payer MEDICAID ==
[2016-11-11 14:30] VITALS: BMI 18.7
== END | disposition home or self-care (01) ==
LOC: D.RAD 12:40
DX: R13.10 Dysphagia, unspecified (principal)

== ENCOUNTER 2018-03-12 22:21 | Emergency (ER) | payer MEDICAID ==
[~2018-03-12] VITALS: Ht 175.3 cm; Wt 85.9 kg
[2018-03-12 22:35] VITALS: Ht 175.3 cm; Wt 85.9 kg
[2018-03-12] MEDS ORDERED: ULTRAM50 MG PO (22:37)
[2018-03-12] MEDS ORDERED: XANAX1 MG PO (22:37)
[2018-03-12] MEDS ORDERED: ABILIFY10 MG PO (22:37)
[2018-03-12 23:46] LABS: APPEARANCE HAZY (CLEAR); BACTERIA MODERATE /hpf (NONE SEEN); BILIRUBIN NEGATIVE (NEGATIVE); COLOR YELLOW (YELLOW); GLUCOSE NEGATIVE (NEGATIVE); KETONE NEGATIVE (NEGATIVE); MUCUS >1+ /lpf (NONE SEEN); NITRITE NEGATIVE (NEGATIVE); PROTEIN NEGATIVE (NEGATIVE); RED CELLS - URINE RARE /hpf (0-5); UROBILINOGEN NORMAL (NORMAL)
[2018-03-12 23:46] LABS: BASOPHILS 0.6 % (0-2); EOSINOPHILS 2.9 % (0-7); HEMATOCRIT 37.8 % (36.0-48.0); HEMOGLOBIN 12.7 g/dL (12-16); IMMATURE GRANULOCYTES 0.3 % (0-5); MCH 30.7 pg (26.0-34.0); MCHC 33.6 g/dL (31.0-37.0); MCV 91.3 fL (80.0-100.0); MONOCYTES 11.9 % (2-11); NEUTROPHILS 60.3 % (40-80); RBC 4.14 10x6/uL (4.00-5.40); RDW 13.8 % (11.5-14.5); WBC 8.8 10x3/uL (4.8-10.8)
[2018-03-12 23:47] LABS: PLATELET COUNT 424 10x3/uL (130-400)
[2018-03-12 23:51] LABS: UDS - AMPHET POSITIVE QUAL (NEGATIVE); UDS - BARB NEGATIVE QUAL (NEGATIVE); UDS - BENZO NEGATIVE QUAL (NEGATIVE); UDS - COCAINE NEGATIVE QUAL (NEGATIVE); UDS - OPIATE NEGATIVE QUAL (NEGATIVE); UDS - PCP NEGATIVE QUAL (NEGATIVE); UDS - THC NEGATIVE QUAL (NEGATIVE)
[2018-03-12 23:57] LABS: HCG SERUM NEGATIVE (NEGATIVE)
[2018-03-13 00:11] LABS: ANION GAP 12.8 mmol/L (8-16); CALCIUM 9.4 mg/dL (8.5-10.1); CARBON DIOXIDE 27.7 mmol/L (21.0-32.0); CREATININE - SERUM 0.9 mg/dL (0.6-1.3); POTASSIUM - SERUM 3.5 mmol/L (3.5-5.1); THYROID STIMULATING HORMONE 1.37 uIU/mL (0.36-3.74)
[2018-03-13 02:27] VITALS: BP 132/89
== END 2018-03-13 02:32 | disposition other institution (70) ==
LOC: D.ER 22:21
PROVIDERS: Emergency Medicine
DX: F23 Brief psychotic disorder (principal); F17.200 Nicotine dependence, unspecified, uncomplicated

== ENCOUNTER 2018-03-26 12:47 | Emergency (ER) | payer MEDICAID ==
[~2018-03-26] VITALS: Ht 175.3 cm; Wt 65.9 kg
[~2018-03-26 12:47] MED LIST changes: +ABILIFY10 MG PO; +ULTRAM50 MG PO; +XANAX1 MG PO
[2018-03-26 13:14] VITALS: Ht 175.3 cm; Wt 65.9 kg
[2018-03-26] MEDS ORDERED: GENTAK3.5 GM LEFT EYE (14:55)
[2018-03-26 15:19] VITALS: BP 117/72
== END 2018-03-26 15:20 | disposition home or self-care (01) ==
LOC: D.ER 12:47
DX: T15.92XA Foreign body on external eye, part unspecified, left eye, initial encounter (principal); X58.XXXA Exposure to other specified factors, initial encounter; Y93.89 Activity, other specified; Y92.019 Unspecified place in single-family (private) house as the place of occurrence of the external cause; S05.02XA Injury of conjunctiva and corneal abrasion without foreign body, left eye, initial encounter; F17.200 Nicotine dependence, unspecified, uncomplicated

== ENCOUNTER 2018-09-15 13:49 | Emergency (ER) | payer MEDICAID ==
[~2018-09-15] VITALS: Ht 175.3 cm; Wt 65.9 kg
[~2018-09-15 13:49] MED LIST changes: +GENTAK3.5 GM LEFT EYE
[2018-09-15 14:09] VITALS: Ht 175.3 cm; Wt 65.9 kg
[2018-09-15 14:41] LABS: BASOPHILS 0.9 % (0-2); EOSINOPHILS 11.2 % (0-7); IMMATURE GRANULOCYTES 0.2 % (0-5); LYMPHOCYTES 22.2 % (15-50); MCH 30.1 pg (26.0-34.0); MCHC 34.2 g/dL (31.0-37.0); MEAN PLATELET VOLUME 10.3 fL (7.4-10.4); NEUTROPHILS 52.5 % (40-80); RBC 4.32 10x6/uL (4.00-5.40); RDW 12.8 % (11.5-14.5); WBC 5.6 10x3/uL (4.8-10.8)
[2018-09-15 14:51] LABS: PLATELET COUNT 329 10x3/uL (130-400)
[2018-09-15 14:52] LABS: APPEARANCE HAZY (CLEAR); BILIRUBIN NEGATIVE (NEGATIVE); COLOR YELLOW (YELLOW); GLUCOSE NEGATIVE (NEGATIVE); KETONE NEGATIVE (NEGATIVE); NITRITE NEGATIVE (NEGATIVE); PROTEIN NEGATIVE (NEGATIVE); SPECIFIC GRAVITY 1.015 (1.005-1.020)
[2018-09-15 14:53] LABS: BACTERIA FEW /hpf (NONE SEEN); EPITHELIAL CELLS 0-5 /hpf (0-5); MUCUS <1+ /lpf (NONE SEEN); RED CELLS - URINE RARE /hpf (0-5); WHITE CELLS - URINE 0-5 /hpf (0-5)
[2018-09-15 15:02] LABS: ALBUMIN 3.8 g/dL (3.4-5.0); ALKALINE PHOSPHATASE 118 U/L (46-116); ALT (SGPT) 64 U/L (10-68); BILIRUBIN - TOTAL 0.55 mg/dL (0.2-1.3); CALC OSMOLALITY 279 mosm/kg (275-300); CALCIUM 8.9 mg/dL (8.5-10.1); CARBON DIOXIDE 27.4 mmol/L (21.0-32.0); CHLORIDE - SERUM 106 mmol/L (98-107); CREATININE - SERUM 0.8 mg/dL (0.6-1.3); GLUCOSE 93 mg/dL (74-106); POTASSIUM - SERUM 3.9 mmol/L (3.5-5.1); PROTEIN - SERUM 7.8 g/dL (6.4-8.2); SODIUM 141 mmol/L (136-145); UREA NITROGEN 11 mg/dL (7-18); eGFR NON AFRICAN AMERICAN 78 mL/min (90-120)
[2018-09-15 15:04] LABS: MAGNESIUM - SERUM 1.9 mg/dL (1.8-2.4)
[2018-09-15 15:33] LABS: UDS - AMPHET NEGATIVE QUAL (NEGATIVE); UDS - BARB NEGATIVE QUAL (NEGATIVE); UDS - BENZO NEGATIVE QUAL (NEGATIVE); UDS - COCAINE NEGATIVE QUAL (NEGATIVE); UDS - OPIATE NEGATIVE QUAL (NEGATIVE); UDS - PCP NEGATIVE QUAL (NEGATIVE); UDS - THC NEGATIVE QUAL (NEGATIVE)
[2018-09-15] MEDS ORDERED: MACROBID100 MG PO (16:06)
[2018-09-15] MEDS ORDERED: ABILIFY10 MG PO (16:08)
[2018-09-15] MEDS ORDERED: COMBIVENT RESPIM4 GM INH (16:08)
[2018-09-15 16:25] VITALS: BP 102/62
== END 2018-09-15 16:25 | disposition home or self-care (01) ==
LOC: D.ER 13:49
PROVIDERS: Family Medicine
DX: F32.9 Major depressive disorder, single episode, unspecified (principal); F41.9 Anxiety disorder, unspecified; G47.00 Insomnia, unspecified; N39.0 Urinary tract infection, site not specified

== ENCOUNTER 2018-09-17 11:47 | Emergency (ER) | payer MEDICAID ==
[~2018-09-17 11:47] MED LIST changes: +COMBIVENT RESPIM4 GM INH; +MACROBID100 MG PO
[2018-09-17 12:02] VITALS: BMI 22.2
[2018-09-17 13:29] VITALS: BP 152/92
== END 2018-09-17 13:30 | disposition home or self-care (01) ==
LOC: D.ER 11:47
DX: N39.0 Urinary tract infection, site not specified (principal); F32.9 Major depressive disorder, single episode, unspecified

== ENCOUNTER 2018-10-25 08:33 | Emergency (ER) | payer MEDICAID ==
[~2018-10-25] VITALS: Ht 175.3 cm; Wt 63.2 kg
[2018-10-25 08:39] VITALS: BP 153/88; Ht 175.3 cm; Wt 63.2 kg
[2018-10-25 09:00] LABS: HCG URINE NEGATIVE (NEGATIVE)
[2018-10-25 09:02] LABS: APPEARANCE HAZY (CLEAR); COLOR YELLOW (YELLOW); NITRITE NEGATIVE (NEGATIVE); SPECIFIC GRAVITY 1.015 (1.005-1.020)
[2018-10-25 09:03] LABS: AMORPHOUS SEDIMENT <1+ /lpf (NONE SEEN); BACTERIA MODERATE /hpf (NONE SEEN); BILIRUBIN NEGATIVE (NEGATIVE); EPITHELIAL CELLS RARE /hpf (0-5); GLUCOSE NEGATIVE (NEGATIVE); GRANULAR CAST OCC /lpf (NONE SEEN); KETONE NEGATIVE (NEGATIVE); MUCUS <1+ /lpf (NONE SEEN); PROTEIN NEGATIVE (NEGATIVE); RED CELLS - URINE RARE /hpf (0-5); UROBILINOGEN NORMAL (NORMAL); WHITE CELLS - URINE OCC /hpf (0-5)
== END 2018-10-25 09:29 | disposition home or self-care (01) ==
LOC: D.ER 08:33
PROVIDERS: Family Medicine
DX: Z78.0 Asymptomatic menopausal state (principal)

== ENCOUNTER 2018-10-26 05:20 | Emergency (ER) | payer MEDICAID ==
[~2018-10-26] VITALS: Ht 175.3 cm; Wt 59.1 kg
[2018-10-26 05:39] VITALS: BP 129/85; Ht 175.3 cm; Wt 59.1 kg
[2018-10-26 06:12] LABS: BASOPHILS 0.9 % (0-2); EOSINOPHILS 16.7 % (0-7); HEMATOCRIT 38.3 % (36.0-48.0); IMMATURE GRANULOCYTES 0.3 % (0-5); LYMPHOCYTES 24.7 % (15-50); MCH 29.3 pg (26.0-34.0); MCHC 33.9 g/dL (31.0-37.0); MCV 86.3 fL (80.0-100.0); MEAN PLATELET VOLUME 9.8 fL (7.4-10.4); MONOCYTES 14.4 % (2-11); PLATELET COUNT 321 10x3/uL (130-400); RBC 4.44 10x6/uL (4.00-5.40); RDW 12.8 % (11.5-14.5); WBC 3.5 10x3/uL (4.8-10.8)
[2018-10-26 06:15] LABS: APPEARANCE CLEAR (CLEAR); COLOR YELLOW (YELLOW); GLUCOSE NEGATIVE (NEGATIVE); NITRITE NEGATIVE (NEGATIVE); PROTEIN NEGATIVE (NEGATIVE); SPECIFIC GRAVITY 1.015 (1.005-1.020)
[2018-10-26 06:16] LABS: BILIRUBIN NEGATIVE (NEGATIVE); KETONE SMALL mg/dL (NEGATIVE); UROBILINOGEN NORMAL (NORMAL)
[2018-10-26 06:29] LABS: UDS - AMPHET NEGATIVE QUAL (NEGATIVE); UDS - BARB NEGATIVE QUAL (NEGATIVE); UDS - BENZO NEGATIVE QUAL (NEGATIVE); UDS - COCAINE NEGATIVE QUAL (NEGATIVE); UDS - OPIATE NEGATIVE QUAL (NEGATIVE); UDS - PCP NEGATIVE QUAL (NEGATIVE); UDS - THC POSITIVE QUAL (NEGATIVE)
[2018-10-26 06:38] LABS: ALBUMIN 3.8 g/dL (3.4-5.0); ALKALINE PHOSPHATASE 94 U/L (46-116); ALT (SGPT) 32 U/L (10-68); BILIRUBIN - TOTAL 0.42 mg/dL (0.2-1.3); CALC OSMOLALITY 277 mosm/kg (275-300); CALCIUM 9.1 mg/dL (8.5-10.1); CARBON DIOXIDE 28.6 mmol/L (21.0-32.0); CHLORIDE - SERUM 103 mmol/L (98-107); CREATININE - SERUM 0.8 mg/dL (0.6-1.3); GLUCOSE 86 mg/dL (74-106); POTASSIUM - SERUM 3.8 mmol/L (3.5-5.1); PROTEIN - SERUM 7.5 g/dL (6.4-8.2); SODIUM 141 mmol/L (136-145); UREA NITROGEN 7 mg/dL (7-18); eGFR NON AFRICAN AMERICAN 78 mL/min (90-120)
[2018-10-26 06:42] LABS: CREATINE KINASE 141 UL (21-215)
== END 2018-10-26 16:00 ==
LOC: D.ER 05:20
PROVIDERS: Family Medicine
DX: F29 Unspecified psychosis not due to a substance or known physiological condition (principal); F22 Delusional disorders

== ENCOUNTER 2018-11-25 17:27 | Emergency (ER) | payer MEDICAID ==
[~2018-11-25] VITALS: Ht 175.3 cm; Wt 68.2 kg
[2018-11-25 17:54] VITALS: Ht 175.3 cm; Wt 68.2 kg
[2018-11-25 18:26] LABS: BASOPHILS 0.9 % (0-2); EOSINOPHILS 13.3 % (0-7); HEMATOCRIT 36.8 % (36.0-48.0); HEMOGLOBIN 12.4 g/dL (12-16); IMMATURE GRANULOCYTES 0.7 % (0-5); LYMPHOCYTES 23.6 % (15-50); MCH 29.1 pg (26.0-34.0); MCHC 33.7 g/dL (31.0-37.0); MCV 86.4 fL (80.0-100.0); MEAN PLATELET VOLUME 9.6 fL (7.4-10.4); MONOCYTES 16.8 % (2-11); NEUTROPHILS 44.7 % (40-80); PLATELET COUNT 334 10x3/uL (130-400); RBC 4.26 10x6/uL (4.00-5.40); RDW 13.1 % (11.5-14.5); WBC 5.4 10x3/uL (4.8-10.8)
[2018-11-25 18:48] LABS: APPEARANCE CLEAR (CLEAR); BILIRUBIN NEGATIVE (NEGATIVE); COLOR YELLOW (YELLOW); GLUCOSE NEGATIVE (NEGATIVE); KETONE NEGATIVE (NEGATIVE); NITRITE NEGATIVE (NEGATIVE); PROTEIN NEGATIVE (NEGATIVE); UROBILINOGEN NORMAL (NORMAL)
[2018-11-25 18:49] LABS: BACTERIA FEW /hpf (NONE SEEN); EPITHELIAL CELLS 0-5 /hpf (0-5); RED CELLS - URINE OCC /hpf (0-5); WHITE CELLS - URINE 0-5 /hpf (0-5)
[2018-11-25 18:51] LABS: UDS - AMPHET NEGATIVE QUAL (NEGATIVE); UDS - BARB NEGATIVE QUAL (NEGATIVE); UDS - BENZO NEGATIVE QUAL (NEGATIVE); UDS - COCAINE NEGATIVE QUAL (NEGATIVE); UDS - OPIATE NEGATIVE QUAL (NEGATIVE); UDS - PCP NEGATIVE QUAL (NEGATIVE); UDS - THC NEGATIVE QUAL (NEGATIVE)
--- NOTE | 2018-11-25 18:55 | NUR ---
Dr. Johnson notified and a 1:1 sitter is recomended as to the suicide assessment score. Resources are provided for the patient.
[2018-11-25 19:09] LABS: ALBUMIN 3.5 g/dL (3.4-5.0); ALKALINE PHOSPHATASE 127 U/L (46-116); ALT (SGPT) 23 U/L (10-68); BILIRUBIN - TOTAL 0.18 mg/dL (0.2-1.3); CALC OSMOLALITY 281 mosm/kg (275-300); CALCIUM 8.4 mg/dL (8.5-10.1); CARBON DIOXIDE 29.5 mmol/L (21.0-32.0); CHLORIDE - SERUM 105 mmol/L (98-107); CREATININE - SERUM 0.8 mg/dL (0.6-1.3); GLUCOSE 83 mg/dL (74-106); POTASSIUM - SERUM 4.2 mmol/L (3.5-5.1); PROTEIN - SERUM 7.3 g/dL (6.4-8.2); SODIUM 141 mmol/L (136-145); UREA NITROGEN 18 mg/dL (7-18); eGFR NON AFRICAN AMERICAN 78 mL/min (90-120)
[2018-11-25 19:10] LABS: MAGNESIUM - SERUM 1.9 mg/dL (1.8-2.4)
[2018-11-26] MEDS ORDERED: CLEOCIN HCL300 MG PO (04:55)
[2018-11-26] MEDS ORDERED: KEFLEX500 MG PO (04:55)
[2018-11-26 05:47] VITALS: BP 122/79
== END 2018-11-26 06:30 ==
LOC: D.ER 17:27
PROVIDERS: Family Medicine
DX: R45.851 Suicidal ideations (principal); L03.311 Cellulitis of abdominal wall; F32.9 Major depressive disorder, single episode, unspecified

== ENCOUNTER 2018-12-08 15:49 | Emergency (ER) | payer MEDICAID ==
[~2018-12-08] VITALS: Ht 175.3 cm; Wt 75.9 kg
[~2018-12-08 15:49] MED LIST changes: +CLEOCIN HCL300 MG PO; +KEFLEX500 MG PO
[2018-12-08 16:13] VITALS: Ht 175.3 cm; Wt 75.9 kg
[2018-12-08] MEDS ORDERED: TEGRETOL ×2 (16:16→16:37)
[2018-12-08] MEDS ORDERED: APRAZOLAM (16:16)
[2018-12-08] MEDS ORDERED: [UNRECOGNIZED DRUG - REMARK] (16:16)
[2018-12-08] MEDS ORDERED: GEODON (16:37)
[2018-12-08] MEDS ORDERED: CELEXA (16:37)
[2018-12-08] MEDS ORDERED: VISTARIL (16:37)
[2018-12-08 16:42] LABS: BASOPHILS 0.3 % (0-2); EOSINOPHILS 0 % (0-7); HEMATOCRIT 37.1 % (36.0-48.0); HEMOGLOBIN 13.2 g/dL (12-16); IMMATURE GRANULOCYTES 0.7 % (0-5); LYMPHOCYTES 16.9 % (15-50); MCH 29.5 pg (26.0-34.0); MCHC 35.6 g/dL (31.0-37.0); MCV 82.8 fL (80.0-100.0); MEAN PLATELET VOLUME 9.5 fL (7.4-10.4); MONOCYTES 9.2 % (2-11); NEUTROPHILS 72.9 % (40-80); PLATELET COUNT 377 10x3/uL (130-400); RBC 4.48 10x6/uL (4.00-5.40); RDW 12.6 % (11.5-14.5); WBC 6.9 10x3/uL (4.8-10.8)
[2018-12-08 17:00] LABS: ALBUMIN 4.3 g/dL (3.4-5.0); ANION GAP 17.8 mmol/L (8-16); BILIRUBIN - TOTAL 0.25 mg/dL (0.2-1.3); CALCIUM 9.8 mg/dL (8.5-10.1); CARBON DIOXIDE 24.7 mmol/L (21.0-32.0); CREATININE - SERUM 1.1 mg/dL (0.6-1.3); MAGNESIUM - SERUM 1.8 mg/dL (1.8-2.4); POTASSIUM - SERUM 4.5 mmol/L (3.5-5.1); PROTEIN - SERUM 8.6 g/dL (6.4-8.2)
[2018-12-08 17:20] LABS: APPEARANCE CLEAR (CLEAR); BILIRUBIN NEGATIVE (NEGATIVE); COLOR YELLOW (YELLOW); GLUCOSE NEGATIVE (NEGATIVE); KETONE NEGATIVE (NEGATIVE); NITRITE NEGATIVE (NEGATIVE); PROTEIN 1+ mg/dL (NEGATIVE); UROBILINOGEN NORMAL (NORMAL)
[2018-12-08 17:21] LABS: BACTERIA FEW /hpf (NONE SEEN); EPITHELIAL CELLS 0-5 /hpf (0-5); RED CELLS - URINE OCC /hpf (0-5); WHITE CELLS - URINE 0-5 /hpf (0-5)
[2018-12-08 17:23] LABS: UDS - AMPHET NEGATIVE QUAL (NEGATIVE); UDS - BARB NEGATIVE QUAL (NEGATIVE); UDS - BENZO NEGATIVE QUAL (NEGATIVE); UDS - COCAINE NEGATIVE QUAL (NEGATIVE); UDS - OPIATE NEGATIVE QUAL (NEGATIVE); UDS - PCP NEGATIVE QUAL (NEGATIVE); UDS - THC NEGATIVE QUAL (NEGATIVE)
[2018-12-09 01:10] VITALS: BP 151/87
== END 2018-12-09 01:11 ==
LOC: D.ER 15:49
PROVIDERS: Family Medicine
DX: R44.0 Auditory hallucinations (principal); F31.9 Bipolar disorder, unspecified; F30.9 Manic episode, unspecified

== ENCOUNTER 2019-02-08 07:44 | Emergency (ER) | payer MEDICAID ==
[~2019-02-08] VITALS: Ht 175.3 cm; Wt 77.3 kg
[~2019-02-08 07:44] MED LIST changes: +APRAZOLAM; +CELEXA; +GEODON; +TEGRETOL; +VISTARIL; +[UNRECOGNIZED DRUG - REMARK]
[2019-02-08 07:53] VITALS: BP 111/78; Ht 175.3 cm; Wt 77.3 kg
[2019-02-08] MEDS ORDERED: PEPCID AC20 MG PO (08:15)
[2019-02-08] MEDS ORDERED: PREDNISONE20 MG PO (08:15)
== END 2019-02-08 09:05 | disposition home or self-care (01) ==
LOC: D.ER 07:44
DX: R21 Rash and other nonspecific skin eruption (principal); F17.210 Nicotine dependence, cigarettes, uncomplicated

== ENCOUNTER 2019-07-18 15:25 | Emergency (ER) | payer MEDICAID ==
[~2019-07-18] VITALS: Ht 175.3 cm; Wt 65.5 kg
[~2019-07-18 15:25] MED LIST changes: +PEPCID AC20 MG PO; +PREDNISONE20 MG PO
[2019-07-18 15:27] VITALS: Ht 175.3 cm; Wt 65.5 kg
[2019-07-18] MEDS ORDERED: VISTARIL25 MG PO (16:46)
[2019-07-18 17:15] VITALS: BP 139/91
== END 2019-07-18 17:15 | disposition home or self-care (01) ==
LOC: D.ER 15:25
DX: F41.9 Anxiety disorder, unspecified (principal); Z86.73 Personal history of transient ischemic attack (TIA), and cerebral infarction without residual deficits

== ENCOUNTER → 2019-11-16 16:42 | Outpatient (CLI) | payer MEDICAID ==
[2019-07-18 15:27] VITALS: BMI 21.3
[~2019-11-16 16:42] MED LIST changes: +VISTARIL25 MG PO
== END | disposition home or self-care (01) ==
LOC: D.MAMMO 07-21 13:00
PROVIDERS: ATTEND General Practice
DX: Z12.31 Encounter for screening mammogram for malignant neoplasm of breast (principal)